=== PATIENT | female | born 1975 | race Two or more races ===

== ENCOUNTER 2016-09-06 17:20 | Emergency (ER) | payer OTHER ==
[~2016-09-06] VITALS: Ht 154.9 cm; Wt 68.0 kg
[~2016-09-06 17:20] MED LIST: ADVIL200 MG ORAL; ALBUTEROL SULF8.5 GM INH; AMITRIPTYLINE25 MG ORAL; ATENOLOL50 MG ORAL; BACTRIM DS TAB1 EAC1 ORAL; FERROUS SULFAT325 MG PO; FIORICET1 EA ORAL; HYDROCHLOROTHIA25 MG PO; IBUPROFEN600 MG ORAL; INDERAL10 MG ORAL; MACROBID100 MG ORAL; METHYLDOPA250 MG PO; NORCO 10-325 T1 EACH PO; NORCO 10/3251 EA ORAL; NORCO 5-325 TA1 EAC1 ORAL; NORCO 7.5-3251 EACH ORAL; PHENERGAN25 M1 ORAL; PHENERGAN25 M1 PO; PREDNISONE20 MG ORAL; TRAMADOL HCL50 MG ORAL; ZOFRAN ODT4 MG ORAL; ZOFRAN4 M1 ORAL
[2016-09-06] MEDS ORDERED: PROPRANOLOL HCL10 MG ORAL (17:44)
[2016-09-06] MEDS ORDERED: Morphine Sulfate 4mg/ml Inj IM ONE (18:00)
[2016-09-06] MEDS ORDERED: Ketorolac 30mg Inj IM ONE (18:00)
[2016-09-06] MEDS ORDERED: PREDNISONE20 MG ORAL (18:46)
[2016-09-06] MEDS ORDERED: ACETAMINOPHEN-1 EAC1 ORAL (18:46)
[2016-09-06] MEDS ORDERED: ZOFRAN ODT4 MG ORAL (18:46)
[2016-09-06 18:58] VITALS: BP 119/76
[2016-09-06 18:59] VITALS: BP 119/76
--- NOTE | 2016-09-06 21:40 | Emergency Room Report ---
History of Present Illness General Chief Complaint: Headache Source: Patient Present Illness HPI 41-year-old female presents ED complaining of headache. This headache on and off for the last one day. Has history of chronic migraine. Pain is a 10 out of 10, sharp, localized across the frontal area. Nonradiating. Denies photophobia, blurry vision. Notes some nausea and vomiting. Denies any fevers or chills. Denies neck stiffness. States that this headache is typical of her headache but she also has history of sinus infections. Denies any ear ache or sore throat. No other aggravating or relieving factors. Denies any other associated symptoms Allergies: Coded Allergies: PENICILLINS (Verified Allergy, Unknown, 09/10/15) Patient History Past Medical History: HTN, asthma Past Surgical History: none, other - brain aneruysm Pertinent Family History: none Social History: Denies: alcohol use, drug use, smoking Last Menstrual Period: 08/19/16 Now: No Immunizations: UTD Reviewed Nursing Documentation: PMH: Agreed, PSxH: Agreed Nursing Documentation-PMH Hx Cardiac Problems: Yes - ANEMIA Hx Hypertension: Yes Hx Pacemaker: No Hx Asthma: Yes Hx COPD: No Hx Diabetes: No Hx Cancer: No Hx Gastrointestinal Problems: No Hx Dialysis: No Hx Neurological Problems: Yes - BRAIN ANEURYSM (CLIPPED - 12/06) MIGRAINE Hx Cerebrovascular Accident: No Hx Seizures: No Review of Systems All Other Systems: negative except mentioned in HPI Physical Exam Vital Signs Date Time Temp Pulse Resp B/P Pulse Ox O2 Delivery O2 Flow Rate FiO2 09/06/16 17:38 98.1 64 15 124/84 99 Room Air Sp02 EP Interpretation: reviewed, normal General Appearance: alert, GCS 15, non-toxic, mild distress Head: normocephalic Eyes: bilateral eye PERRL, bilateral eye normal inspection ENT: hearing grossly normal, normal pharynx, no angioedema, normal voice Neck: full range of motion, supple/symm/no masses Respiratory: chest non-tender, lungs clear, normal breath sounds, speaking full sentences Cardiovascular #1: regular rate, rhythm, no edema Gastrointestinal: normal inspection Rectal: deferred Genitourinary: no CVA tenderness Musculoskeletal: normal inspection Neurologic: alert, oriented x3, responsive, motor strength/tone normal, sensory intact, speech normal Psychiatric: normal inspection Skin: normal inspection Lymphatic: normal inspection Medical Decision Making Diagnostic Impression: Primary Impression: Sinusitis Qualified Codes: J01.10 - Acute frontal sinusitis, unspecified Additional Impression: Acute headache Qualified Codes: R51 - Headache ER Course Hospital Course 41-year-old female presents ED complaining of headache, history of migraines and sinus headaches. Differential diagnoses include: tension headache, migraine, dehydration, intracranial bleed Clinical course Patient placed on stretcher. After initial history and physical I reviewed EMR. Patient has been here multiple times for similar headache type presentation. Patient has no nuchal rigidity, no focal neurological deficits. Vital stable. I do not believe patient requires additional imaging at this time. Patient agrees Patient given IM morphine, IM Toradol and Zofran Upon reassessment patient states pain has improved. Patient feels better wishes to go home. Given the lack of fever, nuchal rigidity or neurological findings my suspicion for intracranial pathology is low patient be safely discharged to home. Symptoms do appear consistent with sinusitis and we will treat accordingly with steroids i. I feel this is a highly complex case requiring extensive working including EKG/Rhythm strip, Xray/CT/US, Blood/urine lab work, repeat exams while in ED, and administration of strong opiates/narcotics for pain control, admission to hospital or close patient follow up. Diagnosis - headache , sinusitis stable and discharged to home with prescription for Zofran, prednisone, Tylenol #3. f/up with PMD. return to ED if symptoms recur/worsen. Last Vital Signs Date Time Temp Pulse Resp B/P Pulse Ox O2 Delivery O2 Flow Rate FiO2 09/06/16 18:59 98.5 70 14 119/76 100 Room Air Status: improved Disposition: HOME, SELF-CARE Condition: Stable Scripts Ondansetron Odt* (ZOFRAN ODT*) 4 Mg Tab.rapdis 4 MG ORAL Q6H Y for Nausea & Vomiting, #30 TAB 0 Refills Prov: REINALDO SHAVER M.D. 09/06/16 Prednisone* (PREDNISONE*) 20 Mg Tablet 40 MG ORAL DAILY, #10 TAB Prov: REINALDO SHAVER M.D. 09/06/16 Acetaminophen With Codeine (T#3) (TYLENOL #3 TAB*) Y Tab 1 TAB ORAL Q8H Y for For Pain, #20 TAB Prov: REINALDO SHAVER M.D. 09/06/16 Referrals: MARSHA ROWLEY (PCP) Patient Instructions: Sinus Headache, Tension Headache REINALDO SHAVER M.D. Sep 06, 2016 21:40
== END 2016-09-06 18:59 | disposition home or self-care (01) ==
LOC: EMR 18:06
DX: J01.10 Acute frontal sinusitis, unspecified (principal); I10 Essential (primary) hypertension; Z88.0 Allergy status to penicillin
CPT/HCPCS: 96372; 99284; J1885; J2270

== ENCOUNTER 2016-11-17 08:10 | Emergency (ER) | payer OTHER ==
[~2016-11-17] VITALS: Ht 154.9 cm; Wt 68.0 kg
[~2016-11-17 08:10] MED LIST changes: +ACETAMINOPHEN-1 EAC1 ORAL; +PROPRANOLOL HCL10 MG ORAL
[2016-11-17 08:58] VITALS: BP 164/100
[2016-11-17] MEDS ORDERED: Morphine Sulfate 10mg/ml Inj IVP ONE (09:00)
[2016-11-17] MEDS ORDERED: DiphenhydrAMINE 50mg/ml Inj IVP ONE (09:00)
--- NOTE | 2016-11-17 09:46 | Emergency Room Report ---
History of Present Illness General Chief Complaint: Headache Source: Patient Present Illness HPI Patient presents with complaints of headache right-sided Patient reports that she feels a swelling sensation Patient provides a significant history that she had a history of aneurysm with surgery previously Denies any visual changes denies any chest pain or shortness of breath Patient reports that her pain is essentially at baseline levels with her intermittently breakthrough headaches Patient denies any neck pain denies any focal weakness Allergies: Coded Allergies: PENICILLINS (Verified Allergy, Unknown, 09/10/15) Patient History Past Medical History: see triage record Pertinent Family History: none Last Menstrual Period: 11/13/16 Now: No Reviewed Nursing Documentation: PMH: Agreed, PSxH: Agreed Nursing Documentation-PMH Past Medical History: No History, Except For Hx Cardiac Problems: Yes - ANEMIA Hx Hypertension: Yes Hx Pacemaker: No Hx Asthma: Yes Hx COPD: No Hx Diabetes: No Hx Cancer: No Hx Gastrointestinal Problems: No Hx Dialysis: No Hx Neurological Problems: Yes - BRAIN ANEURYSM (CLIPPED - 12/06) MIGRAINE Hx Cerebrovascular Accident: No Hx Seizures: No Review of Systems All Other Systems: negative except mentioned in HPI Physical Exam Vital Signs Date Time Temp Pulse Resp B/P Pulse Ox O2 Delivery O2 Flow Rate FiO2 11/17/16 08:15 98.1 71 16 177/100 100 Room Air Sp02 EP Interpretation: reviewed, normal General Appearance: well appearing, no apparent distress Head: normocephalic, atraumatic Eyes: bilateral eye EOMI, bilateral eye PERRL ENT: hearing grossly normal, normal pharynx, TMs + canals normal, uvula midline Neck: full range of motion, supple, no meningismus, no bony tend Respiratory: lungs clear, normal breath sounds, no rhonchi, no respiratory distress, no retraction, no accessory muscle use Cardiovascular #1: normal peripheral pulses, regular rate, rhythm, no edema, no gallop, no JVD, no murmur Gastrointestinal: normal bowel sounds, non tender, soft, no mass, no organomegaly, non-distended, no guarding, no hernia, no pulsatile mass, no rebound Genitourinary: no CVA tenderness Musculoskeletal: normal inspection Neurologic: oriented x3, responsive, platform loader III-XII nml as tested, motor strength/ tone normal, sensory intact Psychiatric: mood/affect normal Skin: normal color, no rash, warm/dry, palpation normal Lymphatic: normal inspection, no adenopathy Medical Decision Making Diagnostic Impression: Primary Impression: Headache ER Course Multiple differentials considered Including but not limited to neurological, neurosurgical, infectious pathology , Patient remains afebrile She is fairly clear regarding, her previous medical history does not want any further intervention Her pain was better controlled her and the patient requires improved outpatient care Last Vital Signs Date Time Temp Pulse Resp B/P Pulse Ox O2 Delivery O2 Flow Rate FiO2 11/17/16 08:58 98.1 67 16 164/100 100 Room Air Status: improved Disposition: HOME, SELF-CARE Condition: Improved Referrals: NON PHYSICIAN (PCP) Additional Instructions: Patient is provided with the discharge instructions notified to follow up with primary doctor in the next 2-3 days otherwise return to the er with any worsening symptoms. Please note that this report is being documented using [employer]comput[employer] technology. This can lead to erroneous entry secondary to incorrect interpretation by the dictating instrument. SABINA PAN D.O. Nov 17, 2016 09:46
[2016-11-17 10:36] VITALS: BP 140/86
== END 2016-11-17 10:37 | disposition home or self-care (01) ==
LOC: EMR 09:00
DX: R51 Headache (principal); Z88.0 Allergy status to penicillin; I10 Essential (primary) hypertension; J45.909 Unspecified asthma, uncomplicated
CPT/HCPCS: 96374; 96375; 99284; J1200; J2270; J2405; J7040

== ENCOUNTER 2017-03-16 11:30 | Emergency (ER) | payer OTHER ==
[~2017-03-16] VITALS: Ht 154.9 cm; Wt 68.0 kg
[2017-03-16] MEDS ORDERED: INDOCIN25 MG/5 ML PO (11:56)
[2017-03-16] MEDS ORDERED: PROPRANOLOL XL80 M1 GT (11:56)
[2017-03-16 12:04] VITALS: BP 133/66
[2017-03-16] MEDS ORDERED: Ketorolac 30mg Inj IV ONE (12:30)
--- NOTE | 2017-03-16 13:37 | Emergency Room Report ---
History of Present Illness General Chief Complaint: Headache Source: Medical Record Present Illness HPI 42-year-old female with history of cerebral aneurysm status post clipping in 2010, chronic headaches presenting with right-sided headache for one day. Patient states that headache is right-sided throbbing 5/10. Patient states that headache was gradual in onset and feels like all of her other headaches. Patient took her indomethacin and propranolol which did not provide much relief. Patient denies any fever chills neck pain nausea vomiting blurry vision Allergies: Coded Allergies: PENICILLINS (Verified Allergy, Unknown, 09/10/15) Patient History Past Medical History: none Past Surgical History: other - Right-sided aneurysmal cerebral clipping Pertinent Family History: none Last Menstrual Period: 03/09/17 Now: No : 0 Para: 0 Nursing Documentation-[facility] Past Medical History Deferred: Pt Cognitively Impaired Hx Cardiac Problems: Yes - ANEMIA Hx Hypertension: Yes Hx Pacemaker: No Hx Asthma: Yes Hx COPD: No Hx Diabetes: No Hx Cancer: No Hx Gastrointestinal Problems: No Hx Dialysis: No Hx Neurological Problems: Yes - BRAIN ANEURYSM (CLIPPED - 12/06) MIGRAINE Hx Cerebrovascular Accident: No Hx Seizures: No Review of Systems Neurological: Reports: headache All Other Systems: negative except mentioned in HPI Physical Exam Vital Signs Date Time Temp Pulse Resp B/P Pulse Ox O2 Delivery O2 Flow Rate FiO2 03/16/17 11:46 97.9 67 18 147/92 99 Room Air Sp02 EP Interpretation: reviewed, normal General Appearance: normal inspection, well appearing, no apparent distress, alert, GCS 15, non-toxic Head: normocephalic, atraumatic Eyes: bilateral eye EOMI, bilateral eye PERRL, bilateral eye normal inspection ENT: normal ENT inspection, normal pharynx, normal voice, moist mucus membranes Neck: normal inspection, full range of motion, supple, no bony tend Respiratory: normal inspection, lungs clear, normal breath sounds, no respiratory distress, no retraction, no wheezing, speaking full sentences, chest symmetrical Cardiovascular #1: normal inspection, regular rate, rhythm, no edema, normal capillary refill Gastrointestinal: normal inspection, non tender, soft, non-distended, no guarding Musculoskeletal: normal inspection, back normal, normal range of motion, non- tender Neurologic: normal inspection, alert, oriented x3, responsive, risk and insurance manager III-XII nml as tested, motor strength/tone normal, sensory intact, normal gait, speech normal Psychiatric: normal inspection, judgement/insight normal, memory normal Skin: normal inspection, normal color, no rash, warm/dry, well hydrated, normal turgor Medical Decision Making Diagnostic Impression: Primary Impression: Headache ER Course 42 yo F p/w SUÁREZ x 1 days. DDX: pt appears otherwise well, no neuro signs, H&P is most consistent with her chronic headache. Other serious diagnoses on differential such as intracranial bleed/sah, meningitis/encephalitis, tumor, however patients H&P is more consistent with benign etiology at this time. There are no neurological signs/symptoms/findings on physical exam and patient appears nontoxic. Plan: Pain control with toradol, IVF ER course: Patient feeling slighttly better with meds Patient continues to appear nontoxic, aox3, no neurologic symptoms. Disposition: Signed out patient to Dr. True rangel -pending symptom improved for SUÁREZ, received toradol, IVF, and morphine. Last Vital Signs Date Time Temp Pulse Resp B/P Pulse Ox O2 Delivery O2 Flow Rate FiO2 03/16/17 12:04 97.9 73 14 133/66 98 Room Air Disposition: HOME, SELF-CARE Condition: Improved Signed Out To: Dr Rangel Referrals: [facility] (PCP) Nayan Prado M.D. Mar 16, 2017 13:37
[2017-03-16] MEDS ORDERED: Morphine Sulfate 4mg/ml Inj IVP ONE (14:00)
[2017-03-16 16:00] VITALS: BP 134/87
[2017-03-16 16:03] VITALS: BP 134/87
== END 2017-03-16 16:03 | disposition home or self-care (01) ==
LOC: EMR 12:15
DX: R51 Headache (principal); I10 Essential (primary) hypertension; J45.909 Unspecified asthma, uncomplicated; Z86.79 Personal history of other diseases of the circulatory system; Z98.890 Other specified postprocedural states
CPT/HCPCS: 96361; 96374; 96375; 99284; J1885; J2270

== ENCOUNTER → 2018-03-28 | Outpatient (CLI) | payer OTHER ==
[~2018-03-28] MED LIST changes: +INDOCIN25 MG/5 ML PO; +PROPRANOLOL XL80 M1 GT
--- NOTE | 2018-03-28 15:00 | Diagnostic Imaging Report ---
Indication: Facial pain Comparison: None Findings: 5 view facial series obtained. Multiple small plates demonstrated over the left side of the orbit, cranial vault. No acute fractures appreciated. The paranasal sinuses appear clear and symmetric. IMPRESSION: No acute fracture appreciated. Left craniotomy
== END | disposition home or self-care (01) ==
LOC: RAD 12:45
DX: R51 Headache (principal); Z98.890 Other specified postprocedural states
CPT/HCPCS: 70150

== ENCOUNTER 2018-05-04 19:05 | Emergency (ER) | payer OTHER ==
[~2018-05-04] VITALS: Ht 154.9 cm; Wt 67.1 kg
[2018-05-04 19:15] VITALS: BP 134/62
[2018-05-04] MEDS ORDERED: LEXAPRO5 MG ORAL (19:15)
[2018-05-04] MEDS ORDERED: LATUDA40 MG PO (19:15)
[2018-05-04] MEDS ORDERED: Norco 5mg/325mg tab ORAL ONE (19:30)
[2018-05-04] MEDS ORDERED: IBUPROFEN600 MG ORAL (20:43)
[2018-05-04] MEDS ORDERED: NORCO 5-325 TA1 EACH ORAL (20:43)
[2018-05-04 20:45] VITALS: BP 135/61
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
--- NOTE | 2018-05-05 09:10 | Diagnostic Imaging Report ---
Indication: Trauma and facial pain Technique: Continuous helical transaxial imaging of the maxillofacial structures obtained without intravenous contrast administration. Coronal 2-D reformats were also obtained. Study obtained in a Siemens sensation [address] Automatic Exposure Control was utilized. Total Dose length Product (DLP): 1987.[address] Dose Index Volume (CTDIvol): 70.38,28.19 mGy Comparison: None Findings: There is left periorbital soft tissue swelling and soft tissue swelling in the supraorbital for head region. No acute fracture is identified. There is a an old fracture of the left frontal process of the maxilla. TMJ, paranasal sinuses and mastoids appear normal. There is a right temporal craniotomy. Small metallic focus consistent with previous aneurysm repair in the right sylvian fissure noted. IMPRESSION: No acute fracture identified. Left orbital/facial soft tissue contusion. Status post previous right temporal craniotomy for aneurysm repair. [facility] has communicated the preliminary results to the Emergency Department. Their findings are largely concordant with this report. The CT scanner at [facility] is accredited by the [employer] and the scans are performed using dose optimization techniques as appropriate to a performed exam including Automatic Exposure control.
--- NOTE | 2018-05-05 09:13 | Diagnostic Imaging Report ---
Indication: Headache Technique: Contiguous 5 mm thick transaxial imaging of the head obtained in a Siemens Sensation [address] scanner. Soft tissue and bone windows generated. Automatic Exposure Control was utilized. Total Dose length Product (DLP): 1987.[address] Dose Index Volume (CTDIvol): 70.38,28.19 mGy Comparison: none Findings: There is mild prominence of the ventricles, basal cisterns, and cerebral sulci consistent with atrophy. Mild, nonspecific, white matter hypoattenuation is noted throughout the brain consistent with chronic small vessel disease. There is a right temporal craniotomy and metallic focus in the right sylvian fissure consistent with previous aneurysm repair. There is no midline shift, edema, acute hemorrhage, mass effect, or abnormal extra-axial fluid collections. Left periorbital soft tissue swelling noted. Impression: No acute intracranial bleed, mass effect or edema. Status post right temporal craniotomy/aneurysm repair. Frontal and left periorbital soft tissue contusion Mild atrophy of the brain. Nonspecific white matter hypoattenuation probably due to chronic small vessel disease. [facility] has communicated the preliminary results to the Emergency Department. Their findings are largely concordant with this report. The CT scanner at [facility] is accredited by the [employer] and the scans are performed using dose optimization techniques as appropriate to a performed exam including Automatic Exposure control.
== END 2018-05-04 20:48 | disposition home or self-care (01) ==
LOC: EMR 19:25
DX: S02.2XXA Fracture of nasal bones, initial encounter for closed fracture (principal); S00.83XA Contusion of other part of head, initial encounter; R51 Headache; I10 Essential (primary) hypertension; Y04.2XXA Assault by strike against or bumped into by another person, initial encounter; Y93.89 Activity, other specified; Y92.89 Other specified places as the place of occurrence of the external cause; Y99.9 Unspecified external cause status
CPT/HCPCS: 70450; 70486; 99284

== ENCOUNTER 2018-05-13 11:40 | Outpatient (CLI) | payer OTHER ==
[~2018-05-13 11:40] MED LIST changes: +LATUDA40 MG PO; +LEXAPRO5 MG ORAL; +NORCO 5-325 TA1 EACH ORAL
--- NOTE | 2018-05-13 14:42 | Diagnostic Imaging Report ---
Indication: Pain, status post trauma Technique: 3 views of the facial bones Comparison: Facial bone CT dated 05/04/2018 Findings: There is a right frontotemporal craniotomy with fixation hardware. There is an aneurysm clip in the expected region of the right middle cerebral artery bifurcation. No definite acute fractures. Sinuses are grossly clear. Please refer to separate nasal bone radiograph report for nasal bone findings Impression: No definite acute facial trauma. Note, however, limited sensitivity for plain radiographs for subtle injuries. Consider repeat CT if there is high clinical suspicion for recurrent injury Please refer to separate nasal bone radiograph report for nasal bone findings Postsurgical changes, as described
--- NOTE | 2018-05-13 16:10 | Diagnostic Imaging Report ---
Indication: Pain, status post trauma Technique: 3 views of the nasal bones Comparison: Reference made to facial bone CT scan dated 05/04/2018 Findings: Lucency projects perpendicular to the vascular grooves visible of the nasal bridge on both lateral views. The nasal process of the maxilla is intact. The nasal septum is midline. The sinuses are clear. Postsurgical changes of the calvarium on the right are demonstrated, as is a right MCA aneurysm clip. Impression: Evidence of nondisplaced nasal fracture on the lateral view. In retrospect, this is evident on recent facial CT scan as a nondisplaced fracture of the left side of the nasal bone. Findings discussed by phone with Dr. Nguyen at the time of interpretation
--- NOTE | 2018-05-13 16:30 | Diagnostic Imaging Report ---
Indication: Right hand pain Technique: 3 views right hand Comparison: none Findings: No acute fractures. No dislocations. The joint spaces are preserved. Impression: Negative
== END 2018-05-13 13:40 | disposition home or self-care (01) ==
LOC: RAD 11:40
DX: S02.2XXA Fracture of nasal bones, initial encounter for closed fracture (principal); M25.541 Pain in joints of right hand
CPT/HCPCS: 70150; 70160

== ENCOUNTER 2018-05-21 15:03 | Emergency (ER) | payer OTHER ==
[~2018-05-21] VITALS: Ht 154.9 cm; Wt 68.0 kg
[2018-05-21 15:10] VITALS: BP 140/77
[2018-05-21] MEDS ORDERED: Ketorolac 60mg Inj IM ONE (15:30)
--- NOTE | 2018-05-21 15:30 | Emergency Room Report ---
History of Present Illness General Chief Complaint: Back Pain-No Injury Present Illness HPI Patient is a 43-year-old female who presents today with complaints of dysuria. She notes associated hematuria and mild right flank pain that began 4 days ago. She states the dysuria has been worsening in the pain is currently 5 out of 10 in severity, no medications been taken. She denies any abdominal pain, fever , chills or associated symptoms. She has no significant medical problems and denies tobacco, alcohol or drug use. Allergies: Coded Allergies: PENICILLINS (Verified Allergy, Unknown, 09/10/15) Patient History Last Menstrual Period: 05/14/18 Reviewed Nursing Documentation: PMH: Agreed; PSxH: Agreed Nursing Documentation-PMH Hx Cardiac Problems: No - ANEMIA Hx Hypertension: Yes Hx Pacemaker: No Hx Asthma: Yes Hx COPD: No Hx Diabetes: No Hx Cancer: No Hx Gastrointestinal Problems: No Hx Dialysis: No Hx Neurological Problems: No - BRAIN ANEURYSM (CLIPPED - 12/06) MIGRAINE Hx Cerebrovascular Accident: No Hx Seizures: No Review of Systems Genitourinary: Reports: dysuria Musculoskeletal: Reports: back pain All Other Systems: negative except mentioned in HPI Physical Exam Vital Signs Date Time Temp Pulse Resp B/P (MAP) Pulse Ox O2 Delivery O2 Flow Rate FiO2 05/21/18 15:05 99.5 90 18 140/77 98 Room Air Sp02 EP Interpretation: reviewed, normal General Appearance: no apparent distress, alert, GCS 15, non-toxic Head: normocephalic, atraumatic Eyes: bilateral eye normal inspection, bilateral eye PERRL ENT: hearing grossly normal, normal pharynx, no angioedema, normal voice Neck: full range of motion, supple/symm/no masses Respiratory: chest non-tender, lungs clear, normal breath sounds, speaking full sentences Cardiovascular #1: regular rate, rhythm, no edema Cardiovascular #2: 2+ carotid (R), 2+ carotid (L), 2+ radial (R), 2+ radial (L) , 2+ dorsalis pedis (R), 2+ dorsalis pedis (L) Gastrointestinal: normal bowel sounds, soft, non-distended, no guarding, no rebound, other - mild suprapubic tenderness to palpation Rectal: deferred Genitourinary: normal inspection, other - right cva tenderness Musculoskeletal: back normal, gait/station normal, normal range of motion, non- tender, calf tenderness Neurologic: alert, oriented x3, responsive, motor strength/tone normal, sensory intact, speech normal Psychiatric: judgement/insight normal, memory normal, mood/affect normal, no suicidal/homicidal ideation Reflexes: 3+ bicep (R), 3+ bicep (L), 3+ tricep (R), 3+ tricep (L), 3+ knee (R) , 3+ knee (L) Skin: normal color, no rash, warm/dry, well hydrated Lymphatic: no adenopathy Medical Decision Making PA Attestation Supervising physician is Dr. Espinoza Diagnostic Impression: Primary Impression: Acute cystitis Additional Impression: Pyelonephritis ER Course Patient presents today with complaints of dysuria and is found to have UTI on UA. On physical exam patient has right CVA tenderness consistent with pyelonephritis. She's given 1 g of IM Rocephin and Toradol for pain. On reevaluation, patient states pain is improving with medication. Patient is afebrile, no evidence of sepsis or systemic infection. Patient is discharged home with Elen and Thao instructed to follow up with PCP for reevaluation. Given return precautions. Patient understands plan and is agreeable. Laboratory Tests Test 05/21/18 15:28 Urine Color Pale yellow Urine Appearance Clear Urine pH 6.5 (4.5-8.0) Urine Specific [place] 1.010 (1.005-1.035) Urine Protein 2+ (NEGATIVE) H Urine Glucose (UA) Negative (NEGATIVE) Urine Ketones Negative (NEGATIVE) Urine Blood 5+ (NEGATIVE) H Urine Nitrite Negative (NEGATIVE) Urine Bilirubin Negative (NEGATIVE) Urine Urobilinogen Normal MG/DL (0.0-1.0) Urine Leukocyte Esterase 1+ (NEGATIVE) H Urine RBC 2-4 /HPF (0 - 2) H Urine WBC 2-4 /HPF (0 - 2) Urine Squamous Epithelial Cells Few /LPF (NONE/OCC) Urine Bacteria Few /HPF (NONE) Last Vital Signs Date Time Temp Pulse Resp B/P (MAP) Pulse Ox O2 Delivery O2 Flow Rate FiO2 05/21/18 15:10 99.5 90 18 140/77 98 Room Air Status: improved Disposition: HOME, SELF-CARE Condition: Stable Scripts Hydrocodone Bit/Acetaminophen 5-325* (NORCO 5-325*) 1 Each Tablet 1 TAB ORAL Q4H PRN for For Pain, #20 TAB 0 Refills Prov: Johnna Delgado 05/21/18 Ciprofloxacin* (CIPRO*) 500 Mg Tablet 500 MG PO BID, #14 TAB Prov: Johnna Delgado 05/21/18 Patient Instructions: Pyelonephritis, Adult, [id number] Johnna Delgado May 21, 2018 15:30
[2018-05-21 15:42] LABS: APPEARANCE,URINE CLEAR; BILIRUBIN, URINE NEGATIVE (NEGATIVE); COLOR,URINE PALE YELLOW; GLUCOSE, URINE (UA) NEGATIVE (NEGATIVE); KETONES,URINE NEGATIVE (NEGATIVE); LEUKOCYTE ESTERASE ,URINE 1+ (NEGATIVE); NITRITE,URINE NEGATIVE (NEGATIVE); PH,URINE 6.5 (4.5-8.0); PROTEIN,URINE 2+ (NEGATIVE); UROBILINOGEN,URINE NORMAL MG/DL (0.0-1.0)
[2018-05-21] MEDS ORDERED: Lidocaine 1% MPF 10mg/ml 5ml INJ ONE (16:00)
[2018-05-21] MEDS ORDERED: CIPRO500 MG PO (16:02)
[2018-05-21] MEDS ORDERED: NORCO 5-325 TA1 EACH ORAL (16:02)
[2018-05-21 16:15] VITALS: BP 132/80
== END 2018-05-21 16:16 | disposition home or self-care (01) ==
LOC: EMR 15:40
DX: N30.00 Acute cystitis without hematuria (principal); N12 Tubulo-interstitial nephritis, not specified as acute or chronic; Z88.0 Allergy status to penicillin; I10 Essential (primary) hypertension; J45.909 Unspecified asthma, uncomplicated
CPT/HCPCS: 81003; 96372; 99283; J0696